=== PATIENT | female | born 1975 | race Two or more races ===

== ENCOUNTER 2018-10-11 23:22 | Emergency (ER) | payer SELFPAY ==
[2018-10-11 23:42] VITALS: BP 142/98
--- NOTE | 2018-10-11 23:42 | ER Document Report ---
ED Substance Abuse / Acc. OD - General Chief Complaint: ETOH Abuse Stated Complaint: ETOH Time Seen by Provider: 10/11/18 23:41 Mode of Arrival: Carried Information source: Patient, Friend, Emergency Med Personnel Cannot obtain history due to: Intoxicated Notes: Patient is a 43-year-old female with no significant past medical history other than chronic alcohol abuse who presents with alcohol intoxication. The patient is unable to give information given her intoxicated state, therefore information was obtained from emergency personnel as well as a friend at bedside. Per report, the patient was consuming "about 4 shots of [place] and another 4-5 shots of vodka" prior to arrival. There was no report of drug use, no recent fever or chills, no recent head injuries. TRAVEL OUTSIDE OF THE [place] IN LAST 30 DAYS: No - HPI Patient complains to provider of: Alcohol abuse Onset: Just prior to arrival Onset/Duration: Gradual Quality of pain: No pain Severity: None Pain Level: Denies Associated Symptoms: None Similar symptoms previously: No Recently seen / treated by doctor: No Past Medical History - General Information source: Patient, Friend, Emergency Med Personnel - Social History Smoking Status: Former Smoker Chew tobacco use (# tins/day): No Frequency of alcohol use: Heavy Drug Abuse: None Lives with: Friend Family History: None Patient has suicidal ideation: No Patient has homicidal ideation: No - Medical History Medical History: Negative - Past Medical History Cardiac Medical History: Reports: None Pulmonary Medical History: Reports: None EENT Medical History: Reports: None Neurological Medical History: Reports: None Endocrine Medical History: Reports: None Renal/ Medical History: Reports: None Malignancy Medical History: Reports: None GI Medical History: Reports: None Musculoskeletal Medical History: Reports None Skin Medical History: Reports None Psychiatric Medical History: Reports: None Traumatic Medical History: Reports: None Infectious Medical History: Reports: None Surgical Hx: Negative Past Surgical History: Reports: None - Immunizations Immunizations up to date: Yes Hx Diphtheria, Pertussis, Tetanus Vaccination: Yes History of Influenza Vaccine for 06/2017 - 11/2017 Season: Unknown Review of Systems - Review of Systems -: Yes ROS unobtainable due to patient's medical condition Constitutional: No symptoms reported EENT: No symptoms reported Cardiovascular: No symptoms reported Respiratory: No symptoms reported Gastrointestinal: No symptoms reported Genitourinary: No symptoms reported Female Genitourinary: No symptoms reported Musculoskeletal: No symptoms reported Skin: No symptoms reported Hematologic/Lymphatic: No symptoms reported Neurological/Psychological: No symptoms reported -: Yes All other systems reviewed and negative Physical Exam - Vital signs Vitals: Temp Pulse Resp BP Pulse Ox 98.2 F 114 H 16 142/98 H 94 10/11/18 23:34 10/11/18 23:34 10/11/18 23:34 10/11/18 23:34 10/11/18 23:34 Interpretation: Normal - Notes Notes: Patient is heavily intoxicated, but is able to request to go home - General General appearance: Appears well, Alert - HEENT Head: Normocephalic, Atraumatic Eyes: Normal Pupils: PERRL - Respiratory Respiratory status: No respiratory distress Chest status: Nontender Breath sounds: Normal Chest palpation: Normal - Cardiovascular Rhythm: Regular Heart sounds: Normal auscultation Murmur: No - Abdominal Inspection: Normal Distension: No distension Bowel sounds: Normal Tenderness: Nontender Organomegaly: No organomegaly - Rectal Notes: Deferred - Genitourinary Notes: Deferred - Back Back: Normal, Nontender - Extremities General upper extremity: Normal inspection, Nontender, Normal color, Normal ROM, Normal temperature General lower extremity: Normal inspection, Nontender, Normal color, Normal ROM, Normal temperature, Normal weight bearing. No: Oscar's sign - Neurological Neuro grossly intact: Yes Cognition: Normal Orientation: AAOx4 Henry Coma Scale Eye Opening: Spontaneous Melchor Coma Scale Verbal: Oriented Melchor Coma Scale Motor: Obeys Commands Melchor Coma Scale Total: 15 Speech: Normal Motor strength normal: LUE, RUE, LLE, RLE Sensory: Normal - Psychological Associated symptoms: Normal affect, Normal mood - Skin Skin Temperature: Warm Skin Moisture: Dry Skin Color: Normal Course - Re-evaluation Re-evalutation: 10/12/18 00:18 Patient is awake, alert, able to ambulate with assistance to the bathroom. Friend at bedside voices he is willing to stay with the patient as they cohabitate. She will be discharged with return precautions. - Vital Signs Vital signs: Temp Pulse Resp BP Pulse Ox 98.2 F 114 H 16 142/98 H 94 10/11/18 23:34 10/11/18 23:34 10/11/18 23:34 10/11/18 23:34 10/11/18 23:34 Discharge - Discharge Clinical Impression: Alcohol intoxication Qualifiers: Complication of substance-induced condition: uncomplicated Qualified Code(s): F10.920 - Alcohol use, unspecified with intoxication, uncomplicated Condition: Good Disposition: HOME, SELF-CARE Instructions: Acute Alcohol Intoxication ([facility]), Family Physicians / Practices Additional Instructions: Please follow-up with your primary physician as needed. Do not consume alcohol in large quantities while also taking Tylenol or other sedating medications/drugs. Return to the emergency department immediately if you experience trouble breathing or have any other concerning symptom. Print Language: Telugu
== END 2018-10-12 00:30 | disposition home or self-care (01) ==
LOC: ER 23:22 → EDBD 23:22 → ER 10-12 00:30
DX: F10.920 Alcohol use, unspecified with intoxication, uncomplicated (principal); Z87.891 Personal history of nicotine dependence
CPT/HCPCS: 99284